=== PATIENT | male | born 1990 | race Caucasian/White ===

== ENCOUNTER 2023-11-14 13:20 | Inpatient (IN) | payer OTHER ==
[~2023-11-14] VITALS: Ht 188 cm; Wt 111.6 kg
[2023-11-14 14:36] LABS: HEMATOCRIT. 27.7 % (42.0-52.0); HEMOGLOBIN. 8.9 g/dL (14.0-18.0); MEAN CORPUSCULAR HEMOGLOBIN 26.7 pg (28.0-32.0); MEAN CORPUSCULAR HGB CONC 32.3 g/dL (31.0-37.0); MEAN CORPUSCULAR VOLUME 82.6 fL (80.0-94.0); MEAN PLATELET VOLUME 7.9 fl (7.4-10.4); PLATELET 167 x1000/uL (130-400); RED BLOOD CELL COUNT 3.35 mill/uL (4.7-6.1); WHITE BLOOD COUNT 12.5 x1000/uL (4.5-11.0)
[2023-11-14 14:43] LABS: CHLORIDE 102 mEq/L (98-107); POTASSIUM 5.6 mEq/L (3.5-5.1); SODIUM 137 mEq/L (136-145)
[2023-11-14 14:44] LABS: CALCIUM 8.9 mg/dL (8.7-10.4); CARBON DIOXIDE 21 mEq/L (21-32)
[2023-11-14 14:49] LABS: GLUCOSE 90 mg/dL (70-105); UREA NITROGEN BLOOD 58 mg/dL (9-23)
[2023-11-14 14:51] LABS: ALANINE AMINOTRANSFERASE < 7 IU/L (10-49); ALBUMIN 4.3 g/dL (3.2-4.8); ASPARTATE AMINOTRANSFERASE 13 IU/L (<34); BILIRUBIN TOTAL 0.6 mg/dL (0.1-1.0)
[2023-11-14 15:02] LABS: DIFFERENTIAL COMMENT 1
[2023-11-14] MEDS: SODIUM POLYSTYRENE SULFONATE 15 G/60 ML BOT PO ONE (15:47)
[2023-11-14] MEDS: DEXTROSE 50% WATER 50ML SYRINGE IV ONE (15:48)
[2023-11-14] MEDS: CALCIUM CHLORIDE 1GM/10ML SYR IV ONE (15:48)
[2023-11-14] MEDS: INSULIN REGULAR (HUMULIN R) 300UNITS/3ML VIAL IV ONE (15:49)
[2023-11-14 16:00] VITALS: PULSE 89; RESP 18; O2SAT 99
[2023-11-14] MEDS: ALBUTEROL (0.083%) 2.5MG/3ML NEB HHN ONE (16:00)
[2023-11-14] MEDS: PIPERACILLIN/TAZO 3.375G/50ML 50 ML IV SCH (17:06)
[2023-11-14 17:08] LABS: PLATELET ESTIMATE NORMAL
[2023-11-14 23:45] VITALS: BP 135/78; PULSE 78; RESP 18; TEMP 97.7
[2023-11-15] VITALS (12 sets, daily range): BP systolic 173–194; BP diastolic 90–114; PULSE 20–102; RESP 17–20; TEMP 98.2–99.3
[2023-11-15] MEDS ORDERED: DEXTROSE 50% WATER 50ML SYRINGE IV PRN (08:30)
[2023-11-15] MEDS: ENOXAPARIN 30MG/0.3ML SYR SUBCUT SCH (09:00)
[2023-11-15 09:20] LABS: BASOPHILS % 0.4 % (0.0-2.0); EOSINOPHILS % 4.5 % (0.0-5.0); HEMATOCRIT. 25.4 % (42.0-52.0); HEMOGLOBIN. 8.3 g/dL (14.0-18.0); LYMPHOCYTES % 8.3 % (20.0-50.0); MEAN CORPUSCULAR HEMOGLOBIN 26.8 pg (28.0-32.0); MEAN CORPUSCULAR HGB CONC 32.6 g/dL (31.0-37.0); MEAN CORPUSCULAR VOLUME 82.1 fL (80.0-94.0); MEAN PLATELET VOLUME 8.5 fl (7.4-10.4); MONOCYTES % 7.8 % (2.0-8.0); PLATELET 140 x1000/uL (130-400); RED BLOOD CELL COUNT 3.09 mill/uL (4.7-6.1)
[2023-11-15 09:25] LABS: CALCIUM 8.9 mg/dL (8.7-10.4)
[2023-11-15 09:35] LABS: CREATININE 13.3 mg/dL (0.6-1.3)
[2023-11-15] MEDS: ALBUTEROL (0.083%) 2.5MG/3ML NEB HHN NR (10:30)
[2023-11-15] MEDS: CEFTRIAXONE 1GM/50ML 50 ML IV SCH (11:13)
[2023-11-15] MEDS: INSULIN LISPRO 100 UNITS/ML SUBCUT SCH (11:45)
[2023-11-15] MEDS: BLOOD SUGAR DIAGNOSTIC STRIP TEST SCH (11:45)
[2023-11-15] MEDS: AZITHROMYCIN 500MG/250ML 250 ML IV SCH (12:16)
[2023-11-15 17:42] LABS: HEPATITIS B SURFACE ANTIGEN NEGATIVE (Negative)
[2023-11-15 18:02] LABS: HEPATITIS A AB IGM NEGATIVE (Negative)
[2023-11-15 18:03] LABS: HEPATITIS B CORE AB IGM NEGATIVE (Negative)
[2023-11-15 18:04] LABS: HEPATITIS C AB NON REACTIVE (Neg) (Negative)
[2023-11-15] MEDS ORDERED: ACETAMINOPHEN 650MG/20.3ML UDC PO PRN (18:45)
[2023-11-15] MEDS ORDERED: IPRATROPIUM/ALBUTEROL 0.5-3(2.5)MG/3ML NEB HHN PRN (18:45)
[2023-11-15] MEDS ORDERED: GUAIFENESIN-DM 200MG-20MG/10ML UDC PO PRN (18:45)
[2023-11-15] MEDS: AMLODIPINE 5MG TABLET PO SCH (20:35)
[2023-11-15] MEDS: CLONIDINE 0.1MG TABLET PO SCH (20:35)
[2023-11-15] MEDS: EPOETIN ALFA 4000UNITS/ML VIAL SUBCUT SCH (20:36)
[2023-11-15] MEDS: PIPERACILLIN/TAZO 3.375G/50ML 50 ML IV SCH (21:43)
[2023-11-15] MEDS: HYDRALAZINE HCL 50MG TABLET PO SCH (21:44)
[2023-11-15] MEDS ORDERED: IOHEXOL-350 100 ML BOTTLE ONE (22:22)
[2023-11-16] VITALS (12 sets, daily range): BP systolic 105–191; BP diastolic 81–112; PULSE 80–89; RESP 16–19; TEMP 97.7–98.6
[2023-11-16] MEDS: CLONIDINE 0.1MG TABLET PO PRN (07:01)
[2023-11-16 07:22] LABS: BASOPHILS % 0.4 % (0.0-2.0); DIFFERENTIAL COMMENT 0; EOSINOPHILS % 5.1 % (0.0-5.0); HEMATOCRIT. 24.1 % (42.0-52.0); HEMOGLOBIN. 8.1 g/dL (14.0-18.0); LYMPHOCYTES % 7.9 % (20.0-50.0); MEAN CORPUSCULAR HEMOGLOBIN 26.8 pg (28.0-32.0); MEAN CORPUSCULAR HGB CONC 33.6 g/dL (31.0-37.0); MEAN CORPUSCULAR VOLUME 79.7 fL (80.0-94.0); MEAN PLATELET VOLUME 8.2 fl (7.4-10.4); MONOCYTES % 9.1 % (2.0-8.0); NEUTROPHILS % 77.5 % (40.0-76.0); PLATELET 150 x1000/uL (130-400); RED BLOOD CELL COUNT 3.03 mill/uL (4.7-6.1); RED CELL DISTRIBUTION WIDTH 15.6 % (11.6-14.6); WHITE BLOOD COUNT 6.8 x1000/uL (4.5-11.0)
[2023-11-16 08:05] LABS: CARBON DIOXIDE 21 mEq/L (21-32); CHLORIDE 100 mEq/L (98-107); POTASSIUM 4.5 mEq/L (3.5-5.1); SODIUM 136 mEq/L (136-145)
[2023-11-16 08:07] LABS: CALCIUM 8.6 mg/dL (8.7-10.4)
[2023-11-16 08:11] LABS: GLUCOSE 88 mg/dL (70-105); UREA NITROGEN BLOOD 53 mg/dL (9-23)
[2023-11-16 08:14] LABS: PHOSPHORUS 7.8 mg/dL (2.5-4.9)
[2023-11-16] MEDS ORDERED: DOXY150T5 MT (09:06)
[2023-11-16] MEDS ORDERED: LEVO250T74 MT (09:06)
[2023-11-16] MEDS ORDERED: DOXY100C5 MT (09:06)
[2023-11-16] MEDS ORDERED: HYDR100T26 MT (09:06)
[2023-11-16] MEDS ORDERED: AMLO5TAB88 MT (09:07)
[2023-11-16] MEDS ORDERED: AMLO5TAB88 PO (09:07)
[2023-11-16] MEDS: DOXYCYCLINE HYCLATE 100MG CAPSULE PO SCH (09:08)
[2023-11-16 09:22] LABS: CREATININE 11.4 mg/dL (0.6-1.3)
== END 2023-11-16 15:00 | disposition home or self-care (01) | DRG 871 ==
LOC: ER 14:00 → EDBEDREQSVC 15:05 → EDBEDREQ 15:05 → 5WST 18:58 → 8WST 23:17
PROVIDERS: ADMIT Internal Medicine Nephrology; ATTEND Internal Medicine Nephrology
PROC: 5A1D70Z Performance of Urinary Filtration, Intermittent, Less than 6 Hours Per Day (ICD-10-PCS; principal; 2023-11-15)
PROC: 5A1D70Z Performance of Urinary Filtration, Intermittent, Less than 6 Hours Per Day (ICD-10-PCS; 2023-11-16)
DX: A41.9 Sepsis, unspecified organism (principal); J18.9 Pneumonia, unspecified organism; N18.6 End stage renal disease; J96.00 Acute respiratory failure, unspecified whether with hypoxia or hypercapnia; J91.8 Pleural effusion in other conditions classified elsewhere; I12.0 Hypertensive chronic kidney disease with stage 5 chronic kidney disease or end stage renal disease; D63.1 Anemia in chronic kidney disease; Z99.2 Dependence on renal dialysis; H93.19 Tinnitus, unspecified ear; E87.5 Hyperkalemia; E78.5 Hyperlipidemia, unspecified; E87.70 Fluid overload, unspecified
CPT/HCPCS: 36415; 71046; 71275; 80048; 80053; 82962; 83036; 83735; 84100; 84145; 85025; 86635; 86705; 86709; 86713; 87340; 87426; 87449; 87804; 90935; 93005; 93306; 94640; 94644; 99285; J0456; J0696; J0885; J1650; J1815; J2543; J3490; Q9967